=== PATIENT | female | born 2000 | race Caucasian/White ===

== ENCOUNTER → 2024-05-31 | Outpatient (CLI) | payer OTHER | LOC: M WHC 07:17 | PROVIDERS: ATTEND Obstetrics & Gynecology | DX: N64.59 Other signs and symptoms in breast (principal); N60.09 Solitary cyst of unspecified breast; Z33.1 Pregnant state, incidental ==

== ENCOUNTER → 2024-11-25 | Outpatient (CLI) | payer OTHER | LOC: M PLARAD 14:57 | PROVIDERS: ATTEND Physician Assistant Medical | DX: K86.2 Cyst of pancreas (principal) ==

== ENCOUNTER → 2024-12-27 | Outpatient (CLI) | payer OTHER | LOC: M RAD 12:42 | PROVIDERS: ATTEND Internal Medicine | DX: E05.90 Thyrotoxicosis, unspecified without thyrotoxic crisis or storm (principal) | CPT/HCPCS: 78012; A9516 ==